=== PATIENT | male | born 1980 | race Two or more races ===

== ENCOUNTER 2016-11-18 19:15 | Emergency (ER) | payer BC ==
[~2016-11-18 19:15] MED LIST: CALTRATE-600 W600 MG PO; PERCOCET 5 DPS1 TAB PO; VIBRAMYCIN-DPS100 M2 PO
--- NOTE | 2016-11-19 06:57 | ER ---
ADMIT: 11/18/2016 RM/LOC: ER [facility] MR#: [id number] [address] [facility] [address] [place], [place] [address] [address] [place] [address] Emergency Room Report SEX: M AGE: 35 : 1980 DATE: 11/18/2016 The patient is a 35-year-old Kazakh-speaking male complaining of #17 toothache, has not seen a dentist quite a few years. Exam remarkable for nontoxic, afebrile male with impacted left wisdom tooth with no periodontal disease, left inferior alveolar block gave good results #17 tooth. Pen VK 500 mg 2 p.o. in department, 1 p.o. q.i.d. #40, hydrocodone 5/325 #20 plus 6 from Pyxis. Follow up dentist in the morning. Dwight Tijerina MD/ olivia JOB #: [id number] CC: Dwight Tijerina MD, Attending Physician Viridiana Cannon MD, Family Physician Jamie Rabago MD
[2017-01-11] MEDS ORDERED: TUMS DPS500 MG PO (15:03)
[2017-01-11] MEDS ORDERED: ROCALTROL DP0.25 MCG PO (15:04)
== END 2016-11-18 20:40 | disposition home or self-care (01) ==
LOC: ER 19:15
PROC: 3E0T3BZ Introduction of Anesthetic Agent into Peripheral Nerves and Plexi, Percutaneous Approach (ICD-10-PCS; principal; 2016-11-18)
DX: K08.89 Other specified disorders of teeth and supporting structures (principal)

== ENCOUNTER 2017-01-09 02:53 | Inpatient (IN) | payer BC, SELFPAY ==
[~2017-01-09] VITALS: Ht 162.6 cm; Wt 70.6 kg
--- NOTE | 2017-01-09 19:52 | ER ---
ADMIT: 01/09/2017 RM/LOC: 417 [facility] MR#: [id number] [id number] [place], [place] [address] [address] [place] [address] Emergency Room Report SEX: M AGE: 36 : 1980 DATE: 01/09/2017 HISTORY OF PRESENT ILLNESS: The patient is a 36-year-old male with past medical history of hypothyroidism, hypoparathyroidism who is taking a calcium supplement, came to the ER with chief complaint of carpopedal spasm and perioral numbness for 1 day. The patient complains of spasm in the upper extremities bilaterally. The patient has similar symptoms in the past and had been hospitalized for hypocalcemia before. The patient states he is compliant with his calcium supplement oral medications. The patient denies any headache, chest pain, visual changes, or taking any digoxin or other medications too. PHYSICAL EXAMINATION: VITAL SIGNS: The patient has stable vitals. GENERAL: In no obvious distress. HEENT/NECK: Negative for lid lag. Pupils are 3 mm, reactive to light bilaterally. Normal extraocular movements. Chvostek sign is negative. Trachea midline. No bruit on the neck. No murmurs in the neck. I did not feel any nodules or any abnormalities in the thyroid. CHEST: Clear bilaterally. HEART: Normal heart sounds. ABDOMEN: Soft. EXTREMITIES: Normal without any swelling. Deep tendon reflexes are mildly brisk, especially in the upper extremities. Trousseau sign was positive on the right side, I did not check on the left side. The patient had normal peripheral pulses and the rest of the physical exam is noncontributory. EMERGENCY ROOM COURSE: EKG showed prolonged QT with normal sinus rhythm with a rate of 74, QT corrected was 495. The patient has sodium of 142, potassium of 3.4, creatinine of 0.9, and ionized calcium was 0.68. The patient's CK level was also elevated to 1472. Parathyroid hormone was also decreased at 5.8. The patient was started on 2 g of calcium gluconate, and also received magnesium sulfate IV in the ER too. Internal Medicine was consulted and the patient was admitted for symptomatic hypocalcemia, hypoparathyroidism, rhabdomyolysis in progress. Sigifredo Curran MD/ olivia JOB #: [id number] CC: Bossman Mcduffie MD, Attending Physician Bossman Mcduffie MD, Family Physician
--- NOTE | 2017-01-11 09:30 | HP ---
ADMIT: 01/09/2017 RM/LOC: 417 [facility] MR#: [id number] [address] [address] [address] [place] [address] History and Physical SEX: M AGE: 36 : 1980 DATE OF SERVICE: CHIEF COMPLAINT: Muscle spasms. HISTORY OF PRESENT ILLNESS: The patient is a very pleasant 36-year-old, gentleman who has a past medical history of hypoparathyroidism and hypocalcemia who presents to [facility] emergency room today with complaints of muscle pain going on about the last 12 hours, mostly in his hands and arms. The patient notes, along with that, felt a little bit of perioral numbness and a little bit of numbness in his extremities as well. He states he had been taking his calcium carbonate 1 tablet twice a day as well as his vitamin D. Also notes a little bit more strenuous work lately and doing a lot more perspiration with high ambient temperatures. He denies chest pain, shortness breath, nausea, vomiting. No bowel or bladder complaints have been noted. In the emergency room, he was noted to have a calcium less than 5 that corrected to just 5.2 with his albumin and elevated phosphorus. He was administered calcium gluconate, magnesium, and was admitted for further treatment. This morning, the patient notes he is feeling much better as muscle spasm and muscle pain have improved. ALLERGIES: NONE. CURRENT HOME MEDICATIONS: Include: 1. Tums 1 tablet twice a day. 2. Vitamin D, unknown dose daily. PAST MEDICAL HISTORY: 1. Hypoparathyroidism with chronic hypocalcemia. 2. History of sepsis secondary to MRSA scrotal cellulitis. 3. History of dental abscess. FAMILY HISTORY: Noncontributory. Denies any family history of anybody having hypercalcemia or symptoms consistent or similar to his. SOCIAL HISTORY: He is with children. Works at [employer] here in town. Nondrinker, nonsmoker, no IV or illicit drugs. REVIEW OF SYSTEMS: Notable above. All other systems reviewed and negative. PHYSICAL EXAMINATION: VITAL SIGNS: 95.7, 64, 14, 90/64, 94% on room air. GENERAL: This is a young gentleman in no apparent distress. He is awake, he is alert. He is oriented x3. Cooperative with the examiner. HEENT: Normocephalic and atraumatic. Mucous membranes little dry. NECK: Supple without lymphadenopathy. HEART: Regular. LUNGS: Clear. ABDOMEN: Soft, nontender, and nondistended. Positive bowel sounds throughout. EXTREMITIES: I do not notice any muscle spasm. He has good circular tank cooper strength. NEUROLOGIC: Cranial nerves intact II through XII. No focal deficits are noted. ADMIT: 01/09/2017 RM/LOC: [address] [place] [address] MR#: [id number] [address] [place], [place] [id number] [address] [place] [address] History and Physical SEX: M AGE: 36 : 1980 SKIN: Shows to me no obvious rashes. LABORATORY DATA: At this point, his lab work is reviewed. Phos was 6.1, calcium was less than 0.5, his albumin was 3.8, that corrects his calcium to 5.2. Mag was 2. Creatine kinase 1472. PTH was 5.8. Sodium 142, potassium 3.4, BUN 20, with creatinine 0.9. His EKG was normal sinus rhythm at 74 beats per minute. His QTc was 495, QRS was 107 milliseconds. I did not notice any significant ST or T-wave segment changes. ASSESSMENT/PLAN: 1. Symptomatic hypocalcemia. 2. History of hypoparathyroidism. 3. Hypokalemia. 4. Elevated CK/mild rhabdomyolysis. At this time, the patient is feeling much better. In the emergency room, he received calcium gluconate, and mag as well as some IV fluids. I am going to get him started on oral calcium carbonate 500 mg 2 tabs t.i.d. with meals which will also help with binding some phos. We will start him on calcitriol b.i.d. as well due to a short half-life. He has lab pending here at 9 a.m., check on things. I am going to give him little potassium by mouth as well for that mild hypokalemia and we will see how his lab work looks and how he is feeling. I am going to have him walk and eat and possibly will be able to get him discharged later in the day. I did mention to the patient that likely his amount of supplementation is not adequate, especially when he is perspiring and working in very warm temperatures and will likely need to increase his calcium intake on those days, but we will see how he does on recheck of lab and how he does symptomatically over the course of the day. Bossman Mcduffie MD/ olivia JOB #: [id number] CC: Bossman Mcduffie, Attending Physician Bossman Mcduffie, Family Physician
[2017-01-11] MEDS ORDERED: TUMS DPS500 MG PO (15:03)
[2017-01-11] MEDS ORDERED: ROCALTROL DP0.25 MCG PO (15:04)
--- NOTE | 2017-01-18 09:59 | DS ---
ADMIT: 01/09/2017 RM/LOC: 417 [facility] MR#: [id number] [address] [address] [address] [place] [address] Discharge Summary SEX: M AGE: 36 : 1980 ADMISSION DATE: 01/09/2017 DISCHARGE DATE: 01/10/2017 DISCHARGE DIAGNOSES: 1. Acute symptomatic hypocalcemia. 2. Hypokalemia. 3. Muscle cramping and tetany, resolved. 4. Elevated CK (creatine kinase) consistent with mild rhabdomyolysis. 5. Chronic hypoparathyroidism. CONSULTATIONS: None. PROCEDURES: None. REASON FOR ADMISSION: A very pleasant, 36-year-old gentleman with past medical history of hypoparathyroidism who presented to [facility] emergency room with complaints of muscle cramping, perioral numbness. He was found to have elevated CKs, to be profoundly hypocalcemic with a corrected calcium less than 5. This was all thought to be symptomatic hypocalcemia. He was admitted for further evaluation and treatment. For complete details, please see H and P dictated on the day of admission. HOSPITAL COURSE: At the time of admission, patient was given IV calcium and IV fluids. Slowly, his tetany improved. He had a mild rhabdomyolysis thought to be from all of the muscle spasms. His CKs came down nicely. His ionized calcium was also low. He had been given some magnesium as well. He had been given a couple of amps of calcium gluconate, and then started on oral replacement with Tums 1000 mg with each meal and calcitriol 25 mcg twice a day. The patient slowly had improvement in symptoms. His CKs came down nicely, his calcium came up nicely. He was started on continuous IV calcium replacement as his calciums came up nicely into the into the 5 range and then ADMIT: 01/09/2017 RM/LOC: 417 [facility] MR#: [id number] [address] [facility] [address] [place], [place] [address] [place] [place] [address] Discharge Summary SEX: M AGE: 36 : 1980 into the 6 range, and then even to the mid-7 range just prior to discharge. He ambulated and ate without difficulty. His IV calcium was stopped and plans were made for discharge. DISCHARGE MEDICATIONS: Found on his discharge medication list. He will continue Tums 1 g with all meals as well as his twice a day calcitriol for approximately the next 4 days before decreasing his calcium to 1 tablet with each meal and his calcitriol to once a day. FOLLOWUP: He will have followup scheduled the next couple of weeks. ACTIVITY AND DIET: As tolerated. Bossman Mcduffie MD/ shailesh JOB #: [id number] CC: Bossman Mcduffie MD, Attending Physician Bossman Mcduffie MD, Family Physician
== END 2017-01-10 17:32 | disposition home or self-care (01) | DRG 641 ==
LOC: ER 02:53 → 4PCU 04:40
PROVIDERS: ADMIT Internal Medicine
DX: E83.51 Hypocalcemia (principal); M62.82 Rhabdomyolysis; R29.0 Tetany; E03.9 Hypothyroidism, unspecified; E20.9 Hypoparathyroidism, unspecified; E87.6 Hypokalemia